=== PATIENT | female | born 1995 | race African-American/Black ===

== ENCOUNTER 2018-12-11 09:44 | Day surgery (SDC) | payer OTHER, SELFPAY ==
[2018-12-11] MEDS ORDERED: Lactated Ringer's 1,000 ML IV SCH (12:00)
[2018-12-11] MEDS ORDERED: Sodium Chloride 0.9% 1,000 ML IV SCH (12:00)
--- NOTE | 2018-12-11 12:06 | PDOC.LDHP ---
Labor and Delivery H&P Allergies/Adverse Reactions: Allergies Allergy/AdvReac Type Severity Reaction Status Date / Time No Known Allergies Allergy Unverified 12/11/18 10:15 - Plan -: HPI: This is a 23 yo at 37.0 wks presenting for syncopal episodes. She comes in this morning after having a pre-syncopal episode. She got weak and fell on her stomach after getting up from the toilet. Before this happened she noted some spotting on the tissue. She denies fevers, chills, or sweats. She states she did not hit her head or lose consciousness. She was able to talk to her grandfather throughout the event. She only drank 3 glasses of water yesterday. She denies N/V/D. She just moved here from [place], [place] and has had 1 care visit at [facility], she is being co-managed by Drs. Duarte & Ulices. She states she has not felt the baby moving since yesterday afternoon. She did not have visits between 8 and 35.3 weeks per [facility] records History: OB hx: Induction at 39 wks , denies complications, denies vacuum/forceps PMH: asthma PSH: neg Meds: PNV, Proair Soc Hx: denies smoking, alcohol, drugs Fam Hx: denies downs, congenital defects, mother with cervical cancer Did not have visits between 8 and 35.3 weeks ordered IOB labs Blood type: O+ REVIEW OF SYSTEMS: Gen: no fever, chills, or sweats Neuro: no numbness/tingling, no weakness, +headache Eyes: no visual changes ENT: no hearing changes, no sore throat, no runny nose Resp: no cough, no SOB, no wheeze Card: denies chest pain, no palpitations GI: no N/V/D, no abdominal pain : no dysuria, no hematuria MSK: no myalgias, no joint pain/stiffness Heme: no easy bruising/bleeding Skin: no rash, no erythema PHYSICAL EXAMINATION: General: NAD, alert and oriented x3 HEENT: PERRLA, EOMI, normal sclera, oropharynx without erythema or exudate, dry cracked lips, dry oral mucosa Neck: Supple. Full ROM. Heart/Cardiovascular System: RRR, Cap refill < 3 seconds, no rub, no murmur Lungs/Respiratory System: clear to auscultation bilaterally. No increased work of breathing. Room air. Abdomen/Gastro-Intestinal System: no abdominal tenderness, normal bowel sounds, Gravid Extremities: Warm extremities. No cyanosis or edema. Neuro: No gross deficits appreciated. CN 2-12 grossly intact Psychiatry: Awake, Alert and cooperative with exam Skin: No lesions, rashes, or ulcers Musculoskeletal: Full ROM A/P: This is a 23 yo at 37.0 wks # Presyncope - EKG, fluids IV and oral - CMP - continuous monitoring # Fall, vaginal spotting - spec exam # Late to Care - no US on record - BPP and growth ordered - IOB labs, GC/CT, GBS today Addendum - Attending - Attending Attestation Date/Time: 12/11/18 0595 I personally evaluated the patient and discussed the management with Dr. Vargas I agree with the History, Examination, Assessment and Plan documented above with any addition or exceptions noted below. 23 yo female at 37.0 wks here for evaluation of pre-syncopal episode. Patient reports faint spotting on toliet paper when going to the bathroom today. Upon standing patient reports feeling dizzy then dropped to her knees. Never loss consciousness. No shaking. No LOF. No further vaginal bleeding. Incomplete record. JAELYN signed and sent to last OB office. Will obs and workup dizziness. Vaginal exam to be done for complaint of spotting. Rule out infectious cause. No contractions on monitor. FHT reactive. Ultrasound ordered. Labs pending. ABrayMD
--- NOTE | 2018-12-11 12:37 | PDOC.EVN ---
Event Note - Event Note Event Note: Spec exam shows no bleeding from the cervix, cervix closed Patient states that she went to [facility] at 8 weeks [place], then [facility], then returned to [facility] at 35 weeks, and is now here in [place] at 37.0 weeks. She states she had a blood transfusion for anemia before the . States "it might have been low iron or hypoglycemia I'm not sure." Denies trauma or MVA , asserts it was a blood transfusion not iron transfusion.
[2018-12-11] MEDS ORDERED: Acetaminophen 500 MG TAB PO SCH (13:30)
[2018-12-11 13:31] LABS: Hemoglobin 9.6 g/dL (12.0-16.0); Mean Corpuscular HGB CONC 31.9 g/dL (32.0-36.0); Mean Corpuscular Hemoglobin 26.6 pg (27.0-31.0); Mean Corpuscular Volume 83.3 fL (78.0-98.0); Mean Platelet Volume 8.3 fL (7.4-10.4); Platelet Count 196 thou/uL (130-400); RBC Distribution Width 13.7 % (11.5-14.5); Red Blood Cell (RBC) Count 3.62 mill/uL (4.20-5.40); White Blood Cell (WBC) Count 8.6 thou/uL (4.8-10.8)
--- NOTE | 2018-12-11 13:31 | PDOC.EVN ---
Event Note - Event Note Event Note: Initial vitals: BP: 101/59 P: 123 T: 98.0 RR: 16 Orthostatic vitals: Sittin/56 P: 110 Standin/58 P: 104 Left lateral: 91/53 EKG: sinus tachycardia with a rate of 103; normal axis; no evidence of ventricular hypertrophy; no evidence of ischemia. Will advance diet. Labs pending.
[2018-12-11 13:42] LABS: Hemoglobin A1c 4.9 % (4.0-6.0)
[2018-12-11 13:55] LABS: ALT (SGPT) 7 U/L (8-55); AST (SGOT) 22 U/L (5-34); Albumin 3.5 g/dL (3.5-5.0); Alkaline Phosphatase 101 U/L (40-150); Anion Gap 13 mmol/L (10-20); BUN (Urea Nitrogen) 5 mg/dL (7.0-18.7); Bilirubin, Total 0.3 mg/dL (0.2-1.2); Calc. Creatinine Clearance 0 mL/min (70-130); Calcium 8.4 mg/dL (7.8-10.44); Carbon Dioxide 21 mmol/L (22-29); Chloride 107 mmol/L (98-107); Estimated GFR-MDRD Greater than 90; Globulin 3.2 g/dL (2.4-3.5); Glucose 66 mg/dL (70-105); Magnesium 1.9 mg/dL (1.6-2.6); Potassium 3.7 mmol/L (3.5-5.1); Protein, Total 6.7 g/dL (6.0-8.3); Sodium 137 mmol/L (136-145)
[2018-12-11 14:13] LABS: Syphilis Antibody Nonreactive (Nonreactive); Syphilis Antibody Index 0.04 S/CO (<1.00 Non-Reactive)
[2018-12-11 14:14] LABS: HBSAg Index 0.29 S/CO (0-0.99); HIV (1/2) Antibody/Antigen Non-Reactive (NonReactive); HIV 1/2 INDEX 0.08 S/CO (<1.00); Hep B Surf Ag Non-Reactive S/CO (NonReactive); Hep C IgG Ab Non-Reactive (NonReactive); Hep C Index 0.06 S/CO (0-0.79)
--- NOTE | 2018-12-11 14:19 | ULT ---
OB ULTRASOUND WITH BIOPHYSICAL PROFILE: INDICATIONS: Fall with injury. FINDINGS: There is a single viable intrauterine . Gestational age by ultrasound is 37 weeks 6 days. BIOMETRY MEASUREMENTS: BPD: 38 weeks 6 days. HC: 36 weeks 6 days. AC: 39 weeks 6 days. FL: 35 weeks 5 days. EFW: 3514 g (90th percentile). PLACENTA: Anterior fundal. AMNIOTIC FLUID: Adequate. JAMA recorded at 10.8 cm. PRESENTATION: Vertex. HEART RATE: 149 beats per minute. anatomy visualized, including intracranial contents, four-chamber heart, stomach, kidneys, cord insertion, bladder, spine, facial features, and three-vessel cord all imaged. No abnormality identi fied. BIOPHYSICAL PROFILE: TONE SCORE: 2 BREATHING SCORE: 0 MOVEMENT SCORE: 2 AMNIOTIC FLUID SCORE: 2 TOTAL SCORE: 6/8 IMPRESSION: 1. A 46-gekq-4-day gestation by ultrasound. 2. Biophysical profile score 6/8. POS: [facility]
--- NOTE | 2018-12-11 15:38 | PDOC.EVN ---
Event Note - Event Note Event Note: On re-evaluation, Pt reports feeling better. Labs wnl. Imaging wnl. Will discharge pt home with close follow-up. She has an appointment with PCP on 12/14 at 1520. Records from received from previous OB provider. Pt dated by LMP/7.3 wk US. Antibody negative. NIPT negative. 1 hr- GTT negative. Pt has a prior history of pre-eclampsia.
--- NOTE | 2018-12-14 13:24 | ULT ---
OB ULTRASOUND WITH BIOPHYSICAL PROFILE: INDICATIONS: Fall with injury. FINDINGS: There is a single viable intrauterine . Gestational age by ultrasound is 37 weeks 6 days. BIOMETRY MEASUREMENTS: BPD: 38 weeks 6 days. HC: 36 weeks 6 days. AC: 39 weeks 6 days. FL: 35 weeks 5 days. EFW: 3514 g (90th percentile). PLACENTA: Anterior fundal. AMNIOTIC FLUID: Adequate. JAMA recorded at 10.8 cm. PRESENTATION: Vertex. HEART RATE: 149 beats per minute. anatomy visualized, including intracranial contents, four-chamber heart, stomach, kidneys, cord insertion, bladder, spine, facial features, and three-vessel cord all imaged. No abnormality identified. BIOPHYSICAL PROFILE: TONE SCORE: 2 BREATHING SCORE: 0 MOVEMENT SCORE: 2 AMNIOTIC FLUID SCORE: 2 TOTAL SCORE: 6/8 IMPRESSION: 1. A 51-tkkw-2-day gestation by ultrasound. 2. Biophysical profile score 6/8.
[2018-12-15 01:23] LABS: Chlamydia by PCR Not Detected (NotDetected); GC by PCR Not Detected (NotDetected)
--- NOTE | 2018-12-16 14:51 | EKG ---
Test Reason : Blood Pressure : / mmHG Vent. Rate : 103 BPM Atrial Rate : 103 BPM P-R Int : 146 ms QRS Dur : 066 ms QT Int : 332 ms P-R-T Axes : 028 046 015 degrees QTc Int : [address] elevation, consider early repolarization Otherwise normal ECG No previous ECGs available Confirmed by NUVIA BERRY ([id number]) on 12/16/2018 2:51:26 PM Referred By: Amber MONTESINOS Confirmed By:NUVIA BERRY
== END 2018-12-11 15:25 | disposition home or self-care (01) ==
LOC: L&D/OP 09:44
PROVIDERS: ATTEND Student in an Organized Health Care Education/Training Program
DX: O99.89 Other specified diseases and conditions complicating pregnancy, childbirth and the puerperium (principal); R55 Syncope and collapse; Z3A.37 37 weeks gestation of pregnancy; Z91.81 History of falling
CPT/HCPCS: 36415; 76700; 76805; 76819; 80053; 83036; 83735; 83880; 85027; 86780; 86803; 86850; 87081; 87340; 87389; 87491; 87591; 93005; 93010; 96360; 96361; 99283

== ENCOUNTER 2019-06-28 11:12 | Emergency (ER) | payer OTHER ==
[2019-06-28 12:46] LABS: #Eosinphils 0.3 thou/uL (0.0-0.7); #Monocytes 0.4 thou/uL (0.11-0.59); %Basophils 0.2 % (0.0-1.0); %Eosinophils 5.8 % (0.0-10.0); %Lymphocytes 21.2 % (21.0-51.0); %Monocytes 7.7 % (0.0-10.0); Hemoglobin 14.1 g/dL (12.0-16.0); Mean Corpuscular HGB CONC 34.5 g/dL (32.0-36.0); Mean Corpuscular Hemoglobin 30.5 pg (27.0-31.0); Mean Corpuscular Volume 88.3 fL (78.0-98.0); Mean Platelet Volume 8.5 fL (7.4-10.4); Platelet Count 175 thou/uL (130-400); RBC Distribution Width 11.7 % (11.5-14.5); Red Blood Cell (RBC) Count 4.62 mill/uL (4.20-5.40); White Blood Cell (WBC) Count 4.6 thou/uL (4.8-10.8)
[2019-06-28 12:49] LABS: BHCG - Serum POSITIVE (NEGATIVE); Pregs Control Background? CLEAR/WHITE (CLR/WHITE); Pregs Control Bar Appear? YES (CONTROL BAR)
[2019-06-28] MEDS ORDERED: Ondansetron PF 4 MG/2 ML Vial ONE (12:51)
[2019-06-28 12:59] LABS: Bilirubin Negative (Negative); Blood, Urine Negative (Negative); Clarity Clear (Clear); Glucose, Urine (Dipstick) Normal (Negative); Leukocyte 75 Leu/uL (Negative); Nitrite Negative (Negative); Protein, Urine (Dipstick) 30 mg/dL (Neg-Trace); Urobilinogen 6 mg/dL (Less than 2); WBC/HPF 0-3 HPF (0-3)
[2019-06-28 13:00] LABS: Bacteria/HPF 1+ HPF (None Seen)
[2019-06-28] MEDS ORDERED: diphenhydrAMINE 50 MG/ML VIAL ONE (13:02)
[2019-06-28] MEDS ORDERED: Metoclopramide HCl 10 MG/2 ML VIAL ONE (13:02)
[2019-06-28 13:57] LABS: ALT (SGPT) 10 U/L (8-55); AST (SGOT) 20 U/L (5-34); Albumin 4.3 g/dL (3.5-5.0); Alkaline Phosphatase 63 U/L (40-110); Anion Gap 15 mmol/L (10-20); BUN (Urea Nitrogen) 8 mg/dL (7.0-18.7); Bilirubin, Total 0.4 mg/dL (0.2-1.2); Calc. Creatinine Clearance 0 mL/min (70-130); Calcium 8.9 mg/dL (7.8-10.44); Carbon Dioxide 19 mmol/L (22-29); Chloride 106 mmol/L (98-107); Estimated GFR-MDRD Greater than 90; Globulin 3.3 g/dL (2.4-3.5); Glucose 80 mg/dL (70-105); Potassium 3.8 mmol/L (3.5-5.1); Protein, Total 7.6 g/dL (6.0-8.3); Sodium 136 mmol/L (136-145)
--- NOTE | 2019-06-28 15:14 | ULT ---
PELVIC ULTRASOUND: Date: 06/28/19 HISTORY: female with nausea and vomiting. TECHNIQUE: Multiplanar Arndt scale and color Doppler images were obtained in a transabdominal and transvaginal pe lvic ultrasound. Spectral analysis of the Doppler waveforms of the right ovary was performed. FINDINGS: There is an intrauterine gestational sac. This contains a yolk sac and a pole. [place]-rump lengt h of the pole is 2.04 cm which estimates gestational age of 8 weeks and 4 days. No free fluid is seen in the pelvis. The left ovary is not visualized. The right ovary is unremarkabl e and demonstrates normal internal flow. IMPRESSION: Single, live intrauterine with estimated age of 8 weeks and 4 days. POS: [facility]
== END 2019-06-28 15:44 | disposition home or self-care (01) ==
LOC: ERS 11:12
DX: R82.71 Bacteriuria (principal); O26.891 Other specified pregnancy related conditions, first trimester; R51 Headache; R11.0 Nausea; Z3A.01 Less than 8 weeks gestation of pregnancy
CPT/HCPCS: 76856; 80053; 81003; 81015; 84702; 84703; 85025; 87077; 87086; 96361; 96374; 96375; J1200; J2405; J2765

== ENCOUNTER 2019-08-26 00:21 | Emergency (ER) | payer OTHER, SELFPAY ==
[2019-08-26 00:55] LABS: #Basophils 0.1 thou/uL (0.0-0.2); #Eosinphils 0.4 thou/uL (0.0-0.7); #Lymphocytes 1.5 thou/uL (1.20-3.40); #Monocytes 0.6 thou/uL (0.11-0.59); #Neutrophils 3.2 thou/uL (1.40-6.50); %Eosinophils 7.6 % (0.0-10.0); %Lymphocytes 25.1 % (21.0-51.0); %Monocytes 10.1 % (0.0-10.0); %Neutrophils 55.2 % (42.0-75.0); Hemoglobin 12.5 g/dL (12.0-16.0); Mean Corpuscular Hemoglobin 30.7 pg (27.0-31.0); Mean Corpuscular Volume 90.4 fL (78.0-98.0); Mean Platelet Volume 8.2 fL (7.4-10.4); Platelet Count 158 thou/uL (130-400); RBC Distribution Width 12.6 % (11.5-14.5); Red Blood Cell (RBC) Count 4.08 mill/uL (4.20-5.40); White Blood Cell (WBC) Count 5.8 thou/uL (4.8-10.8)
[2019-08-26 01:16] LABS: ALT (SGPT) 7 U/L (8-55); AST (SGOT) 19 U/L (5-34); Albumin 3.7 g/dL (3.5-5.0); Alkaline Phosphatase 54 U/L (40-110); Anion Gap 14 mmol/L (10-20); BUN (Urea Nitrogen) 4 mg/dL (7.0-18.7); Bilirubin, Total 0.3 mg/dL (0.2-1.2); Calc. Creatinine Clearance 0 mL/min (70-130); Calcium 8.2 mg/dL (7.8-10.44); Carbon Dioxide 19 mmol/L (22-29); Chloride 107 mmol/L (98-107); Estimated GFR-MDRD Greater than 90; Globulin 3.3 g/dL (2.4-3.5); Glucose 76 mg/dL (70-105); Potassium 3.6 mmol/L (3.5-5.1); Sodium 136 mmol/L (136-145)
[2019-08-26] MEDS ORDERED: Acetaminophen 500 MG TAB ONE (01:29)
[2019-08-26 02:09] LABS: Bacteria/HPF 1+ HPF (None Seen); Bilirubin Negative (Negative); Blood, Urine Negative (Negative); Clarity Extra Turbid (Clear); Glucose, Urine (Dipstick) Normal (Negative); Leukocyte 500 Leu/uL (Negative); Mucous/LPF 1+ LPF (<2+); Nitrite Negative (Negative); Protein, Urine (Dipstick) 50 mg/dL (Neg-Trace); Transitional Epithelial 0-3 HPF (None Seen); Urobilinogen 6 mg/dL (Less than 2); WBC/HPF Greater than 50 HPF (0-3)
[2019-08-26 02:15] LABS: Pregnancy Test - Urine (BHCG) POSITIVE (Negative); Pregu Control Background? CLEAR/WHITE (CLR/WHITE); Pregu Control Bar Appear? YES (CONTROL BAR); Specific Gravity 1.021 (1.002-1.036)
[2019-08-26] MEDS ORDERED: cefTRIAXone\\ROCEPHIN 1 GM VIAL ONE (02:32)
[2019-08-26] MEDS ORDERED: Lidocaine 2% PF 5 ML VIAL ONE (02:33)
--- NOTE | 2019-08-26 07:55 | RAD ---
AP CHEST: HISTORY: Wheezing. FINDINGS: Lungs are clear. Heart and mediastinum unremarkable. IMPRESSION: No acute finding. POS: [facility]
--- NOTE | 2019-09-01 05:56 | PQF ---
[facility] POST DISCHARGE CLINICAL DOCUMENTATION IMPROVEMENT CLARIFICATION FORM l Todays Date: 08/31/2019 l Patients Name Chrissy Casey l l Admit Date 08/26/2019 l Disch Date 08/26/2019 Fleet Administrative Assistant Name Krysta phelps Email: [email or web address] Cell: [phone] To be completed by Fleet Administrative Assistant: Present Clinical Indicators - Signs / Symptoms Results and Location in Medical Record [ ] Documentation of: [ ] [ ] Documentation of: [ ] [ ] Documentation of: [ ] [ ] Documentation of: [ ] [ ] Risks [ ] [ ] [ ] Treatment [ ] Bronchitis Query For Specificity Of Acute Or Chronic Bronchitis [ ] [ ] To be completed by Physician: HOANG Pastrana Kristar The documentation in this patients record requires clarification to ensure coding compliance and accuracy. Check the appropriate box and include in your discharge summary. [ ] [ ] [ ] [ ] Please check this box if this does not apply to this patient [ ] Unable to determine [ ] Other diagnosis: Review the following information and exercise your independent professional judgment in responding to the clarification. Based upon the clinical findings, risk factors, and treatment, please clarify if you are treating one of the above probable or suspected diagnoses. Physician Signature: Date Time KACYD
== END 2019-08-26 02:50 | disposition home or self-care (01) ==
LOC: ERS 00:21
DX: O99.512 Diseases of the respiratory system complicating pregnancy, second trimester (principal); J40 Bronchitis, not specified as acute or chronic; O23.42 Unspecified infection of urinary tract in pregnancy, second trimester; Z3A.17 17 weeks gestation of pregnancy
CPT/HCPCS: 36415; 71045; 80053; 81003; 81015; 81025; 85025; 93005; 94640; 96372; J0696; J2001

== ENCOUNTER 2020-01-12 00:52 | Day surgery (SDC) | payer OTHER ==
[2020-01-12 01:20] VITALS: BP 112/68; TEMP 98.3; BMI 22.6
[2020-01-12] MEDS ORDERED: hydrALAZINE 20 MG/ML VIAL SLOW IVP PRN (01:29)
--- NOTE | 2020-01-12 01:32 | PDOC.FPROB ---
FMR OB H&P: HPI - History of Present Illness Chief Complaint: Decreased Movment & Constipation History of Present Illness: Pt 24 yo F who presents for decreased movement and constipation since Friday that is causing her stomach to cramp. Since yesterday around noon, she has been experiencing lower abdominal pain and back pain. She also states that she fell yesterday around 3pm on to her side and lost conciousness. When she came to, her grandad told her to rest, so she decided to take it easy; however, she says she noticed a decrease in movement since yesterday around noon, although she states she did feel baby move although less then usually around 4-5 pm. She also complains of headache all over that has been unrelieved by Tylenol. She says again while she was putting her children to bed that she felt light-headed and so she decided to come in to be checked out. She says she drinks plenty of water daily. She denies any bleeding, loss of fluid, vaginal discharge, or dysuria. 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 - Surgical History Sx History: None - Social History Social History: Denies any drinking, illicit drug use or smoking - Family History Family History: Mom- Cervical Cancer FMR OB H&P: Medications - Current Home Medications: Medication Instructions Recorded Confirmed Type Albuterol Sulfate [Proair HFA] 1 puff PO PRN PRN 01/12/20 01/12/20 History Pnv No.103/Folic/Om3s/Fish Oil 1 tab PO DAILY 01/12/20 01/12/20 History [ Gummies] Allergies/Adverse Reactions: Allergies Allergy/AdvReac Type Severity Reaction Status Date / Time No Known Allergies Allergy Verified 01/12/20 01:12 FMR OB H&P: ROS - Review of Systems General: denies: fever/chills, fatigue Eyes: denies: vision changes ENT: denies: nasal congestion, rhinorrhea, sore throat Cardiovascular: reports: edema. denies: chest pain Respiratory: reports: shortness of breath Gastrointestinal: reports: abdominal pain, constipation. denies: nausea, vomiting, diarrhea Genitourinary (Female): denies: dysuria, vaginal discharge, vaginal bleeding, contractions Musculoskeletal: reports: pain (lower back pain) Neurologic: reports: syncope. denies: numbness, weakness Integumentary: denies: itching, rash Hematologic/Lymphatic: denies: prolonged or excessive bleeding, enlarged lymph nodes FMR OB H&P: Vital Signs - Maternal Vital signs: Vital Signs - First Documented Temp Pulse Resp BP Pulse Ox 98.3 F 104 H 20 112/68 100 01/12/20 01:10 01/12/20 01:10 01/12/20 01:10 01/12/20 01:10 01/12/20 01:10 - Heart Tones Baseline: 160 Variability: moderate Acceleration: present Deceleration: absent Category: category 1 [place] contractions every: None FMR OB H&P: Physical Exam - Physical Exam General: NAD, awake, alert and oriented HEENT: normocephalic and atraumatic, PERRLA, EOMI, MMM, conjunctiva clear, normal nasal mucosa, oropharynx clear Neck: supple, no LAD Chest: non-tender to palpation Heart: RRR, normal S1/S2, no murmurs/rubs/gallops, pulses present Deviation from normal: trace edema of the ankles General: CTAB, no respiratory distress, good air movement, no rales/rhonchi, no wheezing, no retractions Abdomen: soft, gravid, bowel sound present Musculoskeletal: pulses present, FROM in all four extremities Neurological: cranial nerves II through XII intact, no focal deficit Skin: no rash, good tugor Psychiatric: normal mood and affect FMR OB H&P: A/P - Problem List (1) Dehydration Status: Acute Code(s): E86.0 - DEHYDRATION (2) Syncope Status: Acute Code(s): R55 - SYNCOPE AND COLLAPSE (3) Headache Status: Acute Code(s): R51 - HEADACHE (4) Status: Acute (5) Anemia affecting Status: Acute Code(s): O99.019 - ANEMIA COMPLICATING , UNSPECIFIED TRIMESTER (6) Asthma Status: Acute Code(s): J45.909 - UNSPECIFIED ASTHMA, UNCOMPLICATED Disposition: Pt 24 yo F who presents for decreased movement and constipation since Friday that is causing her stomach to cramp. 1. Syncopy with BELLO * EKG ordered & shows NSR * CBC shows Hgb of 9.1 * Likely culprit * CMP wnl * UA: 1+ satya, 75 kev * No complaints of dysuria * Orthostatics neg * BPP: 8/8 2. Anemia of Hgb: 9.1 * Will set up for iron transfusion 3. Asthma Continue home medications 4. IUP 37 wks * Pap: awaiting records * Gonorrhea & Chlamydia obtained today * GBS obtained today * GTT not done Dispo: Discharged home with return precautions and recommended adequate fluid intake. Syncopy likely 2/2 to anemia. Will set up for transfusion. Discussion: Date/Time: 01/12/20130 This H&P was discussed with [] and [] who agree with the above documentation and plan. Addendum - Attending - Attending Attestation Date/Time: 01/13/202010 I personally evaluated the patient and discussed the management with the team on day of service. I agree with the History, Examination, Assessment and Plan documented above with any addition or exceptions noted below. Tolerated PO intake. Negative ECG, orthostatics. Cat 1 FHTs, BPP reassuring (please note I reviewed images of bpp and JAMA/SDP adequate) OBT warnings and dc.
[2020-01-12] MEDS ORDERED: Senokot S 8.6-50 MG TAB PO SCH (01:45)
[2020-01-12 02:33] LABS: Bacteria/HPF 1+ HPF (None Seen); Bilirubin Negative (Negative); Blood, Urine Negative (Negative); Clarity Clear (Clear); Glucose, Urine (Dipstick) Normal (Negative); Leukocyte 75 Leu/uL (Negative); Nitrite Negative (Negative); Protein, Urine (Dipstick) Negative (Neg-Trace); RBC/HPF 0-3 HPF (0-3); Urobilinogen 3 mg/dL (Less than 2)
[2020-01-12 02:34] LABS: Urine Culture Reflex No No
[2020-01-12] MEDS ORDERED: Polyethylene Glycol 3350 17 GM Packet PO SCH ×2 (02:45→09:00)
[2020-01-12 03:39] LABS: #Eosinphils 0.2 thou/uL (0.0-0.7); #Lymphocytes 2.4 thou/uL (1.20-3.40); #Monocytes 0.8 thou/uL (0.11-0.59); #Neutrophils 4.6 thou/uL (1.40-6.50); %Basophils 0.2 % (0.0-1.0); %Eosinophils 2.9 % (0.0-10.0); %Lymphocytes 29.9 % (21.0-51.0); %Monocytes 10.1 % (0.0-10.0); %Neutrophils 56.9 % (42.0-75.0); Hemoglobin 9.1 g/dL (12.0-16.0); Mean Corpuscular HGB CONC 33.1 g/dL (32.0-36.0); Mean Corpuscular Hemoglobin 25.6 pg (27.0-31.0); Mean Corpuscular Volume 77.5 fL (78.0-98.0); Mean Platelet Volume 9.5 fL (7.4-10.4); Platelet Count 168 thou/uL (130-400); RBC Distribution Width 14.7 % (11.5-14.5); Red Blood Cell (RBC) Count 3.56 mill/uL (4.20-5.40)
[2020-01-12 04:00] LABS: ALT (SGPT) Less than 7 U/L (8-55); AST (SGOT) 17 U/L (5-34); Alkaline Phosphatase 138 U/L (40-110); Anion Gap 12 mmol/L (10-20); BUN (Urea Nitrogen) 6 mg/dL (7.0-18.7); Bilirubin, Total 0.3 mg/dL (0.2-1.2); Calc. Creatinine Clearance 140 mL/min (70-130); Calcium 8.3 mg/dL (7.8-10.44); Carbon Dioxide 21 mmol/L (22-29); Chloride 108 mmol/L (98-107); Estimated GFR-MDRD Greater than 90; Globulin 3.6 g/dL (2.4-3.5); Glucose 87 mg/dL (70-105); Potassium 3.7 mmol/L (3.5-5.1); Protein, Total 6.6 g/dL (6.0-8.3); Sodium 137 mmol/L (136-145)
--- NOTE | 2020-01-12 07:57 | ULT ---
ULTRASOUND BIOPHYSICAL PROFILE: DATE: 01/12/2020 HISTORY: 24-year-old female. Decreased movement. FINDINGS: lie: Cephalic Placenta: Posterior Amniotic fluid volume: Subjectively low. JAMA measured as 9 cm. heart rate: 137 bpm breathin tone: 2 movement: 2 Amniotic fluid volume: 2 IMPRESSION: 1. Normal biophysical profile score of 8 out of 8, excluding the nonstress test. 2. Questionable oligohydramnios.
--- NOTE | 2020-01-12 15:45 | EKG ---
Test Reason : Blood Pressure : / mmHG Vent. Rate : 100 BPM Atrial Rate : 100 BPM P-R Int : 142 ms QRS Dur : 074 ms QT Int : 348 ms P-R-T Axes : 066 070 021 degrees QTc Int : 448 ms Sinus tachycardia Normal ECG Confirmed by NUVIA BERRY ([id number]) on 01/12/2020 3:45:30 PM Referred By: DONNY Confirmed By:NUVIA BERRY
[2020-01-13 18:30] LABS: Chlamydia by PCR Not Detected (NotDetected); GC by PCR Not Detected (NotDetected)
== END 2020-01-12 04:24 | disposition home or self-care (01) ==
LOC: L&D/OP 00:52
PROVIDERS: ATTEND Emergency Medicine
DX: O36.8130 Decreased fetal movements, third trimester, not applicable or unspecified (principal); O99.613 Diseases of the digestive system complicating pregnancy, third trimester; K59.00 Constipation, unspecified; O99.013 Anemia complicating pregnancy, third trimester; D64.9 Anemia, unspecified; O99.513 Diseases of the respiratory system complicating pregnancy, third trimester; J45.20 Mild intermittent asthma, uncomplicated; O99.283 Endocrine, nutritional and metabolic diseases complicating pregnancy, third trimester; E86.0 Dehydration; Z3A.37 37 weeks gestation of pregnancy
CPT/HCPCS: 36415; 76819; 80053; 81001; 85025; 87077; 87081; 87491; 87591; 93005; 93010; 99285

== ENCOUNTER 2020-01-15 18:26 | Day surgery (SDC) | payer OTHER ==
[2020-01-15 19:03] VITALS: BMI 22.6
[2020-01-15] MEDS ORDERED: hydrALAZINE 20 MG/ML VIAL SLOW IVP PRN (19:55)
--- NOTE | 2020-01-15 20:11 | PDOC.FPROB ---
FMR OB H&P: HPI - History of Present Illness Chief Complaint: contractions Indentification: 24yo @ 37.3 wk LMP c/w 8.5wk sono History of Present Illness: 24yo @ 37.3 wk LMP c/w 8.5wk sono presents for contractions. States on going for days, constant lower abd pressure, abd cramping, and lower back cramping. Pain has been increasing. Denies any LOF, vaginal bleeding, change in vaginal discharge, or dysuria. No CP, SOB, n/v, RUQ pain, LE edema. Mild GERD. She was seen 3 days ago for similar sxs, BPP 8/8, NST reactive, no contractions and discharged with return precautions. 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 - Surgical History Sx History: none - Social History Social History: Denies etOH, illicits, tob - Family History Family History: Mom - cervical cancer FMR OB H&P: Medications - Current Home Medications: Medication Instructions Recorded Confirmed Type Albuterol Sulfate [Proair HFA] 1 puff PO PRN PRN 01/12/20 01/15/20 History Pnv No.103/Folic/Om3s/Fish Oil 1 tab PO DAILY 01/12/20 01/15/20 History [ Gummies] Allergies/Adverse Reactions: Allergies Allergy/AdvReac Type Severity Reaction Status Date / Time No Known Allergies Allergy Verified 01/12/20 01:12 FMR OB H&P: ROS - Review of Systems General: denies: weight/appetite/sleep changes, fatigue, recent trauma Eyes: denies: vision changes, scotomas, floaters ENT: denies: nasal congestion, rhinorrhea, sore throat Cardiovascular: denies: chest pain, palpitation Respiratory: denies: cough, congestion, shortness of breath Gastrointestinal: reports: indigestion, cramping. denies: nausea, vomiting Genitourinary (Female): reports: contractions. denies: dysuria, hematuria, hesitancy, vaginal discharge, vaginal bleeding, vaginal pressure Musculoskeletal: reports: pain. denies: swelling, decrease range of motion Neurologic: denies: numbness, syncope Integumentary: denies: rash FMR OB H&P: Vital Signs - Maternal Vital signs: BP 101/68, HR 83, RR 12 - Heart Tones Baseline: 130 Variability: moderate Acceleration: present Deceleration: absent Category: category 1 [place] contractions every: none FMR OB H&P: Physical Exam - Physical Exam General: NAD, awake, alert and oriented HEENT: EOMI, MMM, conjunctiva clear, no scleral icterus, oropharynx clear Neck: supple, trachea midline Heart: RRR, normal S1/S2, no murmurs/rubs/gallops, pulses present, no edema General: CTAB, no respiratory distress, good air movement, no rales/rhonchi, no wheezing Abdomen: soft, gravid, non-tender, bowel sound present Musculoskeletal: pulses present Neurological: no focal deficit Skin: no rash Lymphatic: no unusual bruising or bleeding Psychiatric: intact recent and remote memory, good judgement and insight, normal mood and affect - Pelvic Exam SVE: closed/50/-3 FMR OB H&P: A/P - Problem List (1) Term Status: Acute Code(s): Z34.90 - ENCNTR FOR SUPRVSN OF NORMAL , UNSP, UNSP TRIMESTER (2) Anemia affecting Status: Acute Code(s): O99.019 - ANEMIA COMPLICATING , UNSPECIFIED TRIMESTER Qualifiers: Trimester: third trimester Qualified Code(s): O99.013 - Anemia complicating , third trimester Disposition: 24yo @ 37.3 wk LMP c/w 8.5wk sono presents for contractions #SIUP @ 37.3wk - presents for contractions. No LOF, vaginal bleeding, or change in discharge. Endorses good FM. - Reactive FHT - accels, no deccels, baseline 130, no contractions on the monitor, mild uterine irritability - Closed/50/-3 on exam - Recent labor triage on 01/12/20 with BPP 8/8, reassuring FHT - Does not appear to be in labor, encourage hydration, rest, and tylenol for lower back pain - UA without signs of acute infection - Has induction date set for 01/27 - Routine OB follow up #Anemia of - Hb 10.2, will need to monitor PP as had transfusion after last #Asthma - mild intermittent, cont home meds Dispo: Discharge home with labor precautions, no signs of labor at this time. Discharge plan discussed with patient who voiced understanding and agreement, all questions answered. Discussion: Date/Time: 01/15/202002 This H&P was discussed with Dr. Amos and Dr. Chao who agree with the above documentation and plan. Addendum - Attending - Attending Attestation Date/Time: 01/15/202122 I personally evaluated the patient and discussed the management with the team. I agree with the History, Examination, Assessment and Plan documented above with any addition or exceptions noted below. Comfortable appearing. Cat 1 Relatively quiet on toco with some irritability Exam as above. OBT warnings and dc.
[2020-01-15 20:25] LABS: Bilirubin Negative (Negative); Blood, Urine Negative (Negative); Clarity Clear (Clear); Glucose, Urine (Dipstick) Normal (Negative); Leukocyte 75 Leu/uL (Negative); Mucous/LPF Rare LPF (<2+); Nitrite Negative (Negative); Protein, Urine (Dipstick) Negative (Neg-Trace); RBC/HPF 0-3 HPF (0-3); Urobilinogen 3 mg/dL (Less than 2); WBC/HPF 0-3 HPF (0-3)
[2020-01-15 20:34] LABS: Bacteria/HPF Rare-Few HPF (None Seen)
== END 2020-01-15 20:47 | disposition home or self-care (01) ==
LOC: L&D/OP 18:26
PROVIDERS: ATTEND Student in an Organized Health Care Education/Training Program
DX: O47.1 False labor at or after 37 completed weeks of gestation (principal); O99.013 Anemia complicating pregnancy, third trimester; D64.9 Anemia, unspecified; O99.513 Diseases of the respiratory system complicating pregnancy, third trimester; J45.20 Mild intermittent asthma, uncomplicated; Z3A.37 37 weeks gestation of pregnancy
CPT/HCPCS: 81001; 99282

== ENCOUNTER 2020-01-25 11:41 | Day surgery (SDC) | payer OTHER ==
[2020-01-25 12:39] VITALS: BMI 22.6
[2020-01-25] MEDS ORDERED: hydrALAZINE 20 MG/ML VIAL SLOW IVP PRN (12:52)
--- NOTE | 2020-01-25 12:54 | PDOC.FPROB ---
FMR OB H&P: HPI - History of Present Illness Chief Complaint: decreased movement. Indentification: 24 at 38.6 wga by 8 wk sono History of Present Illness: Pt presents for decreased movement and "back to back" contractions over the past day. Says she has not felt her baby move since yesterday. Denies VB/VD/ LOF. She went to wrong location this AM for her Covid swab, which she was due to get since she is scheduled for eIOL on Saturday 01/27. Has appt reji/ Gaudencio at [facility] on 01/25. Reports he was thinking of maybe sending her over for induction tomorrow. Primary Care Physician: SANDRA Ratliff FMR OB H&P: Current - Care : 3 Para: 1999 Gestational age: 38.6 Due date: 02/02/2020 Dating Criteria: 8wk sono Course/Complications: Late transfer of care, Anemia of - OB Labs Blood type: O RH: positive Antibody Screen: negative HIV: negative RPR: negative HepBsAg: unknown Quad screen: unknown Gonorrhea: unknown Chlamydia: unknown GBS: positive - Additional Ultrasound Additional: BPP performed on 01/12/2020 that was 8/8. FMR OB H&P: History - Past Medical History PMH: asthma - OB History OB History: Hx of pre-e in 2 prior pregnancies. 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 - Social History Social History: denies. - Family History Family History: Mom: cervical cancer. FMR OB H&P: Medications - Current Home Medications: Medication Instructions Recorded Confirmed Type Albuterol Sulfate [Proair HFA] 1 puff PO PRN PRN 01/12/20 01/26/20 History Pnv No.103/Folic/Om3s/Fish Oil 1 tab PO DAILY 01/12/20 01/26/20 History [ Gummies] Allergies/Adverse Reactions: Allergies Allergy/AdvReac Type Severity Reaction Status Date / Time No Known Allergies Allergy Verified 01/26/20 11:33 FMR OB H&P: ROS - Review of Systems General: denies: fever/chills Eyes: denies: vision changes ENT: denies: trouble with swallowing Cardiovascular: denies: chest pain Respiratory: denies: cough, shortness of breath Gastrointestinal: denies: abdominal pain, nausea, vomiting Genitourinary (Female): reports: contractions, vaginal pressure. denies: dysuria, vaginal discharge, vaginal bleeding Musculoskeletal: denies: pain Neurologic: reports: headache. denies: weakness Integumentary: denies: rash Hematologic/Lymphatic: denies: prolonged or excessive bleeding Psychological: denies: depression, anxiety FMR OB H&P: Vital Signs - Maternal Vital signs: BP 116/63 HR 97 - Heart Tones Baseline: 140 (reactive) Variability: moderate Acceleration: present Deceleration: absent [place] contractions every: uterine irritability, occasional contraction FMR OB H&P: Physical Exam - Physical Exam General: NAD (looks tired) HEENT: normocephalic and atraumatic, PERRLA, EOMI, no scleral icterus, grossly normal vision, grossly normal hearing Heart: RRR, normal S1/S2, no murmurs/rubs/gallops, no edema General: CTAB, no wheezing Abdomen: soft, gravid, non-tender Neurological: no focal deficit Skin: no rash Lymphatic: no unusual bruising or bleeding Psychiatric: intact recent and remote memory, normal mood and affect - Pelvic Exam Vulva: normal hair distribution SVE: 2/thick/-3, midposition Membranes: intact. Presentation: cephalic per Ultrasound done on 01/12/2020 Estimated Weight: 7 lbs FMR OB H&P: A/P - Problem List (1) Decreased movement Status: Acute Code(s): O36.8190 - DECREASED MOVEMENTS, UNSP TRIMESTER, UNSP (2) Asthma Status: Acute Code(s): J45.909 - UNSPECIFIED ASTHMA, UNCOMPLICATED Disposition: discharge home from L&D. Labor and return precautions given. Discussion: Date/Time: 01/25/20 1253 24 yo F 24 yo F at 38.6 wga Decreased FM - NST reactive - BPP 03/11. JAMA 11.7. Cervix 3.6 cm. Vertex presentation. Posterior placenta. - if all results normal, will d/c and recommend f/u tomorrow w/ PCP. Contractions - none observed on monitor - 2 cm dilated, does not appear to be in active labor. Asthma - avoid hemabate for bleeding if indicated. Otherwise, pt missed her Covid swab appointment this morning as she went to wrong location. We will collect swab here and submit under L# so patient can have swab prior to induction of labor scheduled for 01/27. This H&P was discussed with Dr. Barragan, who agrees with the above documentation and plan. Signature: Cornelia Ontiveros MD PGY1 Addendum - Attending - Attending Attestation Date/Time: 01/27/20 0732 I personally evaluated the patient and discussed the management with Dr. Burirs yesterday. I agree with the History, Examination, Assessment and Plan documented above with any addition or exceptions noted below.
--- NOTE | 2020-01-25 14:05 | ULT ---
ULTRASOUND BIOPHYSICAL PROFILE: DATE: 01/25/2020 HISTORY: 24-year-old female with decreased movement FINDINGS: breathin tone: 2 movement: 2 Amniotic fluid volume: 2 JAMA 11.5 cm. lie: Vertex heart rate: 130 bpm IMPRESSION: Normal biophysical profile score of 8 out of 8, excluding the nonstress test.
[2020-01-26 13:57] LABS: SARS-CoV-2 MS2 Positive; SARS-CoV-2 N Gene Negative; SARS-CoV-2 S Gene Negative; SARS-CoV-2 orf1ab Negative
== END 2020-01-25 14:10 | disposition home or self-care (01) ==
LOC: L&D/OP 11:41
PROVIDERS: ATTEND Student in an Organized Health Care Education/Training Program
DX: O36.8130 Decreased fetal movements, third trimester, not applicable or unspecified (principal); O47.1 False labor at or after 37 completed weeks of gestation; O99.013 Anemia complicating pregnancy, third trimester; D64.9 Anemia, unspecified; O99.513 Diseases of the respiratory system complicating pregnancy, third trimester; J45.909 Unspecified asthma, uncomplicated; Z3A.38 38 weeks gestation of pregnancy
CPT/HCPCS: 76819; 87635; 99283; U0003

== ENCOUNTER 2020-07-10 10:14 | Emergency (ER) | payer OTHER ==
[2020-07-10 11:38] LABS: ALT (SGPT) 11 U/L (8-55); AST (SGOT) 19 U/L (5-34); Albumin 4.3 g/dL (3.5-5.0); Alkaline Phosphatase 86 U/L (40-110); Anion Gap 13 mmol/L (10-20); BUN (Urea Nitrogen) 12 mg/dL (7.0-18.7); Bilirubin, Total 0.4 mg/dL (0.2-1.2); Calc. Creatinine Clearance 0 mL/min (70-130); Calcium 8.8 mg/dL (7.8-10.44); Carbon Dioxide 21 mmol/L (22-29); Chloride 106 mmol/L (98-107); Globulin 3.7 g/dL (2.4-3.5); Glucose 76 mg/dL (70-105); Potassium 3.8 mmol/L (3.5-5.1); Sodium 136 mmol/L (136-145)
[2020-07-10 11:39] LABS: Bacteria/HPF None Seen HPF (None Seen); Bilirubin Negative (Negative); Blood, Urine 3+ (Negative); Clarity Clear (Clear); Glucose, Urine (Dipstick) Normal (Negative); Ketone, Urine Negative (Negative); Leukocyte Negative Leu/uL (Negative); Nitrite Negative (Negative); Protein, Urine (Dipstick) 10 mg/dL (Neg-Trace); RBC/HPF 0-3 HPF (0-3); Specific Gravity, Urine 1.031 (1.002-1.036); WBC/HPF 0-3 HPF (0-3); pH, Urine 6.5 (5.0-9.0)
[2020-07-10 11:50] LABS: BHCG - Serum POSITIVE (NEGATIVE); Pregs Control Background? CLEAR/WHITE (CLR/WHITE); Pregs Control Bar Appear? YES (CONTROL BAR)
[2020-07-10 12:36] LABS: Hemoglobin 12.2 g/dL (12.0-16.0); Mean Corpuscular HGB CONC 31.8 g/dL (32.0-36.0); Mean Corpuscular Hemoglobin 28.4 pg (27.0-31.0); Mean Corpuscular Volume 89.3 fL (78.0-98.0); Mean Platelet Volume 8.1 fL (7.4-10.4); Platelet Count 190 thou/uL (130-400); RBC Distribution Width 12.7 % (11.5-14.5); White Blood Cell (WBC) Count 4.9 thou/uL (4.8-10.8)
[2020-07-10 12:46] LABS: Band 1 % (5-11); Eosinophils 10 % (0-10); Lymphocytes 23 % (21-51); MDiff Complete? YES; Monocytes 11 % (0-10); Neutrophil 45 % (42-75); Platelet Morphology Comment Appears Adequate; RBC Morphology Normal; Reactive Lymphocytes 9 % (0-10)
--- NOTE | 2020-07-10 13:01 | ULT ---
FIRST TRIMESTER OBSTETRICAL ULTRASOUND INDICATION: History of vaginal spotting and positive serum test; hCG unavailable TECHNIQUE: Grayscale, M-mode Doppler, color Doppler and spectral Doppler images were obtained. Murtaza hollis is focused on the clinical indication. Transabdominal and transvaginal exam was performed. COMPARISON: Prior pelvic ultrasound dated June 28, 2019 FINDINGS: Uterus: The uterus measured 7.9 x 4.3 x 5.5cm.No intrauterine gestational sac is identified. No extrauterine gestational sac is identified. Intrauterine gestation: Not identified. Yolk Sac:Not applicable Pole :Not applicable heart rate: Not applicable bpm. Subchorionic Hemorrhage: Not applicable BIOMETRY: No intrauterine gestation identified. Ovaries: RIGHT OVARY: 2.2 x 1.3 x 1.9 cm. Mass: None. Flow: Normal LEFT OVARY: 3.3 x 3.4 x 2.0 cm. The land survey technician had measurements of a cystic structure within the lef t ovary measuring 6.2 x 5.1 mm suspicious for a follicle. Mass: None. Flow: Normal CUL-DE-SAC: Minimal free fluid IMPRESSION: 1. No intrauterine gestation demonstrated. Findings are consistent with a of undetermined l ocation. Findings may be related to early , ectopic or missed . Continued clinical and sonographic follow-up is recommended. 2. Small left ovarian follicular cyst. 3. Minimal free fluid in the pelvis
[2020-07-11 21:15] LABS: Chlamydia by PCR Not Detected (NotDetected); GC by PCR Not Detected (NotDetected)
== END 2020-07-10 13:34 | disposition home or self-care (01) ==
LOC: ERS 10:14
DX: O03.9 Complete or unspecified spontaneous abortion without complication (principal); O99.511 Diseases of the respiratory system complicating pregnancy, first trimester; J45.909 Unspecified asthma, uncomplicated; Z79.899 Other long term (current) drug therapy
CPT/HCPCS: 36415; 76856; 80053; 81003; 81015; 84702; 84703; 85025; 86900; 86901; 87480; 87491; 87510; 87591; 87660; 94760

== ENCOUNTER 2020-12-09 20:33 | Emergency (ER) | payer OTHER ==
[2020-12-09] MEDS ORDERED: Ketorolac Tromethamine 30 MG/ML VIAL ONE (21:06)
== END 2020-12-09 21:41 | disposition home or self-care (01) ==
LOC: ERS 20:33
DX: S80.12XA Contusion of left lower leg, initial encounter (principal); J45.909 Unspecified asthma, uncomplicated; W20.8XXA Other cause of strike by thrown, projected or falling object, initial encounter
CPT/HCPCS: 96372; J1885

== ENCOUNTER 2021-01-12 19:39 | Emergency (ER) | payer OTHER ==
[2021-01-12 21:36] LABS: #Basophils 0.1 thou/uL (0.0-0.2); #Eosinphils 0.1 thou/uL (0.0-0.7); #Lymphocytes 2.7 thou/uL (1.20-3.40); #Monocytes 0.5 thou/uL (0.11-0.59); #Neutrophils 2.8 thou/uL (1.40-6.50); %Basophils 1.7 % (0.0-1.0); %Eosinophils 2.3 % (0.0-10.0); %Lymphocytes 42.3 % (21.0-51.0); %Monocytes 8.4 % (0.0-10.0); %Neutrophils 45.3 % (42.0-75.0); Hemoglobin 13.6 g/dL (12.0-16.0); Mean Corpuscular HGB CONC 33.9 g/dL (32.0-36.0); Mean Corpuscular Hemoglobin 30.8 pg (27.0-31.0); Mean Corpuscular Volume 90.9 fL (78.0-98.0); Platelet Count 220 thou/uL (130-400); RBC Distribution Width 11.7 % (11.5-14.5); Red Blood Cell (RBC) Count 4.42 mill/uL (4.20-5.40); White Blood Cell (WBC) Count 6.3 thou/uL (4.8-10.8)
[2021-01-12 21:37] LABS: Bilirubin Negative (Negative); Blood, Urine Negative (Negative); Clarity Clear (Clear); Glucose, Urine (Dipstick) Negative (Negative); Ketone, Urine Trace mg/dL (Negative); Leukocyte Negative (Negative); Nitrite Negative (Negative); Protein, Urine (Dipstick) Negative (Neg-Trace)
[2021-01-12 21:38] LABS: Specific Gravity, Urine 1.035 (1.002-1.036)
== END 2021-01-12 23:37 | disposition home or self-care (01) ==
LOC: ERS 19:39
DX: O26.891 Other specified pregnancy related conditions, first trimester (principal); R10.30 Lower abdominal pain, unspecified; O20.8 Other hemorrhage in early pregnancy; O99.511 Diseases of the respiratory system complicating pregnancy, first trimester; J45.909 Unspecified asthma, uncomplicated; Z3A.09 9 weeks gestation of pregnancy
CPT/HCPCS: 36415; 76856; 81003; 84702; 85025; 86900; 86901; 87086

== ENCOUNTER 2022-06-19 19:33 | Emergency (ER) | payer OTHER ==
[2022-06-19] MEDS ORDERED: Ketorolac Tromethamine 30 MG/ML VIAL ONE (22:39)
[2022-06-19 22:45] LABS: #Basophils 0.1 thou/uL (0.0-0.2); #Eosinphils 0.3 thou/uL (0.0-0.7); #Lymphocytes 2.7 thou/uL (1.20-3.40); #Monocytes 0.7 thou/uL (0.11-0.59); #Neutrophils 2.5 thou/uL (1.40-6.50); %Basophils 1.4 % (0.0-1.0); %Eosinophils 4.5 % (0.0-10.0); %Lymphocytes 43.6 % (21.0-51.0); %Monocytes 10.4 % (0.0-10.0); %Neutrophils 40.1 % (42.0-75.0); Hemoglobin 13.1 g/dL (12.0-16.0); Mean Corpuscular HGB CONC 32.8 g/dL (32.0-36.0); Mean Corpuscular Hemoglobin 30.3 pg (27.0-31.0); Mean Corpuscular Volume 92.5 fl (78.0-98.0); Mean Platelet Volume 8.4 fL (7.4-10.4); Platelet Count 188 10x3/uL (130-400); RBC Distribution Width 12.5 % (11.5-14.5); Red Blood Cell (RBC) Count 4.33 mill/uL (4.20-5.40); White Blood Cell (WBC) Count 6.3 10x3/uL (4.8-10.8)
[2022-06-19 22:46] LABS: Bacteria/HPF None Seen HPF (None Seen); Bilirubin Negative (Negative); Blood, Urine Negative (Negative); Clarity Clear (Clear); Glucose, Urine (Dipstick) Normal (Negative); Ketone, Urine Trace mg/dL (Negative); Leukocyte 250 Leu/uL (Negative); Mucous/LPF 3+ LPF (<2+); Nitrite Negative (Negative); Protein, Urine (Dipstick) 30 mg/dL (Neg-Trace); RBC/HPF 0-3 HPF (0-3); Specific Gravity, Urine 1.041 (1.002-1.036)
[2022-06-19 22:47] LABS: Pregnancy Test - Urine (BHCG) POSITIVE (Negative); Pregu Control Background? CLEAR/WHITE (CLR/WHITE); Pregu Control Bar Appear? YES (CONTROL BAR); Specific Gravity 1.041 (1.002-1.036)
[2022-06-19 23:08] LABS: ALT (SGPT) 7 U/L (8-55); AST (SGOT) 15 U/L (5-34); Albumin 4.1 g/dL (3.5-5.0); Alkaline Phosphatase 61 U/L (40-110); Anion Gap 14 mmol/L (10-20); BUN (Urea Nitrogen) 12 mg/dL (7.0-18.7); Bilirubin, Total 0.2 mg/dL (0.2-1.2); Calc. Creatinine Clearance 0 mL/min (70-130); Calcium 8.8 mg/dL (7.8-10.44); Carbon Dioxide 19 mmol/L (22-29); Chloride 108 mmol/L (98-107); Estimated GFR 110; Globulin 3.4 g/dL (2.4-3.5); Glucose 83 mg/dL (70-105); Potassium 3.5 mmol/L (3.5-5.1); Protein, Total 7.5 g/dL (6.0-8.3); Sodium 137 mmol/L (136-145)
[2022-06-19 23:29] LABS: BHCG - Serum POSITIVE (NEGATIVE); Pregs Control Background? CLEAR/WHITE (CLR/WHITE); Pregs Control Bar Appear? YES (CONTROL BAR)
== END 2022-06-19 23:35 | disposition home or self-care (01) ==
LOC: ERS 19:33
DX: O99.891 Other specified diseases and conditions complicating pregnancy (principal); R42 Dizziness and giddiness; R11.0 Nausea; Z3A.01 Less than 8 weeks gestation of pregnancy
CPT/HCPCS: 36415; 71045; 80053; 81003; 81015; 81025; 83605; 84703; 85025; 87086; 93005; 96361; 96374; J1885